=== PATIENT | male | born 1975 | race Caucasian/White ===

== ENCOUNTER 2025-06-05 17:46 | Emergency (ER) | payer OTHER, SELFPAY ==
[2025-06-05 17:55] VITALS: BP 185/117; PULSE 82; RESP 16; TEMP 37; O2SAT 95; BMI 36.1
--- NOTE | 2025-06-05 17:58 | DI.RAD.S_ITS ---
PROCEDURE: XR FINGER LT MIN 2V INDICATIONS: fish hook through finger TECHNIQUE: AP hand, 2 views of the 3rd finger(s) acquired. COMPARISON: None. FINDINGS: Bones: No fractures or dislocations. No suspicious bony lesions. Soft tissues: No suspicious soft tissue calcifications. A metallic fishhook tip is imbedded in the pad of the 3rd distal phalanx. It does not contact the bone. IMPRESSION: Soft tissue fishhook without involvement of the underlying 3rd distal phalanx. Dictated by: Linda Vazquez M.D. on 06/05/2025 at 17:32 Approved by: Linda Vazquez M.D. on 06/05/2025 at 17:35
--- NOTE | 2025-06-05 20:30 | ED.SKABFB ---
HPI - Skin/Abscess/Foreign Bdy General Chief complaint: Skin/Abscess/Foreign Body Stated complaint: fish hook in finger on left hand Time Seen by Provider: 06/05/25 17:50 History of Present Illness HPI narrative: 49-year-old male was fishing and proximally 3:00 p.m. earlier today had large salmon fish hook caught in his left 3rd fingertip. No other injuries. Last tetanus shot greater than 5 years ago. Has history of allergy to amoxicillin antibiotic. Related Data Previous Rx's ?Medication ?Instructions ?Recorded clindamycin HCl 300 mg capsule 300 mg PO Q6H Dental infection 7 06/05/25 days #28 caps Exam Narrative Exam Narrative: GENERAL: Well-developed patient, in mild distress. HEAD: Atraumatic. Normocephalic. EYES: Pupils equal round and reactive. Extraocular motions intact. No scleral icterus. No injection or drainage. ENT: Nose without bleeding, purulent drainage. Throat without erythema, tonsillar hypertrophy or exudate. Airway patent. NECK: Trachea midline. Non tender CARDIOVASCULAR: Regular rate and rhythm without murmurs, gallops, or rubs. RESPIRATORY: Clear to auscultation. Breath sounds equal bilaterally. No wheezes, rales, or rhonchi. GASTROINTESTINAL: Abdomen soft, non-tender, nondistended. EXTREMITIES: Large 7 cm salmon fish hook imbedded in left middle finger distal phalanx medial aspect distal pad. Not through and through. BACK: Nontender without deformity or crepitance. No flank tenderness. NEURO: AOx3. Motor functions grossly nonfocal. SKIN: No rash or erythema of visible areas Initial Vital Signs Initial Vital Signs: Vital Signs Temperature 98.6 F 06/05/25 17:55 Pulse Rate 82 06/05/25 17:55 Respiratory Rate 16 06/05/25 17:55 Blood Pressure 185/117 H 06/05/25 17:55 Pulse Oximetry 95 06/05/25 17:55 Oxygen Delivery Method Room Air 06/05/25 17:55 Procedures Foreign Body OTHER Time of procedure: 20:31 Foreign Body Removal Site: left and hand (Middle finger large salmon hook embedded distal phalanx through tito) Description of foreign body: fish hook Sedation/Analgesia: none and other (Local anesthetic 1% lidocaine without epinephrine digital block and around needle tip. Total 2 cc.) Technique: removal with forceps Confirmed by:: direct visualization Complications: none Post-procedure exam: awake, alert Neurovascular: normal distal pulse Course Orders Ordered: Discontinued Medications Clindamycin HCl (Clindamycin 150 Mg Capsule) 300 mg PO NOW ONE Stop: 06/05/25 20:29 Last Admin: 06/05/25 20:35 Dose: 300 mg Documented By: JOSEP Diphtheria/Tetanus/Acell Pertussis (Tet,Diph,Pertuss(Acell),Vac/Pf 0.5 Ml Syringe) 0.5 ml IM .ONCE ONE Stop: 06/05/25 20:29 Last Admin: 06/05/25 20:36 Dose: 0.5 ml Documented By: SGMagda Vital Signs Vital signs: Vital Signs - 8 hr 06/05/25 17:55 Temperature 98.6 F Pulse Rate 82 Respiratory Rate 16 Blood Pressure 185/117 H Pulse Oximetry 95 Oxygen Delivery Method Room Air MDM - Skin/Abscess/Foreign Bdy Imaging Data Extremity x-ray #1: Radiologist's Impression: [address] [address] XRay Report Signed Patient: Cm Herrera MR#: [id number] : 1975 Acct:[id number] Age/Sex: 49 / M Date of Service: 06/05/25 Loc: ED Accession Number: [id number] Procedure: XR finger LT min 2V Ordering Provider: Jose Manuel Curiel D.O. PROCEDURE: XR FINGER LT MIN 2V INDICATIONS: fish hook through finger TECHNIQUE: AP hand, 2 views of the 3rd finger(s) acquired. COMPARISON: None. FINDINGS: Bones: No fractures or dislocations. No suspicious bony lesions. Soft tissues: No suspicious soft tissue calcifications. A metallic fishhook tip is imbedded in the pad of the 3rd distal phalanx. It does not contact the bone. IMPRESSION: Soft tissue fishhook without involvement of the underlying 3rd distal phalanx. Dictated by: Linda Vazquez M.D. on 06/05/2025 at 17:32 Approved by: Linda Vazquez M.D. on 06/05/2025 at 17:35 MDM Narrative Medical decision making narrative: Embedded large salmon fish hook left middle fingertip through tito, not through and through. X-ray showed no bony fracture. [place] foreign body removed after digital hemiblock lidocaine without epi, and some local infiltration near the fish hook tito, stab incision small 2 mm with #11 Blade, along the course of the embedded fish hook segment/tito. Then fish hook was withdrawn intact with forceps. Tito intact. Wound irrigated by nursing. Tetanus updated, Tdap given. History of amoxicillin allergy. We will allow puncture wound to drain, no primary closure, patient expressed understanding. Oral clindamycin given, prescription for further clindamycin sent to his pharmacy. Discharge Plan Departure Patient Disposition: Home Clinical Impression: Fish hook in finger Activity Restrictions/Additional Instructions: Large fish hook embedded through tito left middle finger distal phalanx, no fracture by x-ray. Through the tito, unable to easily withdrawal due to the presence of bar. Single hook not trouble hook. Digital block and local anesthesia. Small incision. Fish hook withdrawn by forceps intact. Small puncture wound left open to drain, at risk for infection. History of amoxicillin allergy noted. Clindamycin oral antibiotic given, prescription for further clindamycin antibiotic. Wound check with your regular doctor next couple of days advised. Tetanus Tdap given. Return earlier to this/nearest emergency department for any change worsening symptoms or any concerns prior. Prescriptions: New clindamycin HCl 300 mg capsule 300 mg PO Q6H 7 Days Qty: 28 0RF Stand Alone Forms: Patient Portal/API
[2025-06-05] MEDS: CLINDAMYCIN 150 MG CAPSULE 300 MG PO (20:35)
[2025-06-05] MEDS: TET,DIPH,PERTUSS(ACELL),VAC/PF 0.5 ML SYRINGE IM (20:36)
[2025-06-05 20:46] VITALS: BP 134/91; PULSE 81; RESP 16; O2SAT 94
== END 2025-06-05 20:47 | disposition home or self-care (01) ==
PROVIDERS: Emergency Provider Emergency Medicine
DX: S69.90XA Unspecified injury of unspecified wrist, hand and finger(s), initial encounter (principal); Z23 Encounter for immunization
CPT/HCPCS: 73140; 90471; 99283; 90715